=== PATIENT | female | born 1950 | race Caucasian/White ===

== ENCOUNTER → 2017-11-19 07:44 | Outpatient (CLI) | payer MEDICARE, OTHER, SELFPAY ==
[2017-11-19 09:51] LABS: Blood Urea Nitrogen 14 mg/dL (7-17); Calcium 9.8 mg/dL (8.4-10.2); Carbon Dioxide 26 mmol/L (22-32); Chloride 105 mmol/L (98-107); Cholesterol 161 mg/dL (140-199); Estimated Glomerular Filt Rate > 60.0 mL/min (>60); Glucose 91 mg/dL (80-110); HDL Cholesterol 53 mg/dL (40-60); HEMOLYSIS < 15 (0-50); LDL Cholesterol Calculated 86 mg/dL (<100); Potassium 4.1 mmol/L (3.4-5.1); Sodium 143 mmol/L (137-145); Triglycerides 108 mg/dL (35-150)
== END ==
PROVIDERS: PCP Internal Medicine; Visit Provider Internal Medicine
DX: Z00.00 Encounter for general adult medical examination without abnormal findings (principal); E03.9 Hypothyroidism, unspecified
CPT/HCPCS: 36415; 80048; 80061

== ENCOUNTER → 2018-03-23 13:51 | Outpatient (CLI) | payer MEDICARE, OTHER, SELFPAY | PROVIDERS: Family Provider Family Medicine; PCP Internal Medicine; Visit Provider Registered Nurse | DX: R39.9 Unspecified symptoms and signs involving the genitourinary system (principal) | CPT/HCPCS: 87086 ==

== ENCOUNTER → 2018-07-02 12:02 | Outpatient (CLI) | payer MEDICARE, OTHER, SELFPAY ==
--- NOTE | 2018-07-02 12:00 | DI.MG.S_ITS ---
Patient Name: SAHARA MERIDA date: 1950 Sex: F Attending Physician: Monalisa Indications: Date: 07/02/2018 12:16 At the request of: LILLIAN WESTFALL Procedure: MM screening mammo BI BILATERAL DIGITAL SCREENING MAMMOGRAM 3D/2D WITH CAD: 07/02/2018 CLINICAL: Routine screening. Comparison is made to exams dated: 06/13/2017 mammogram, 06/04/2016 mammogram, and 05/30/2015 mammogram - [facility]. The tissue of both breasts is extremely dense, which lowers the sensitivity of mammography. Current study was also evaluated with a Computer Aided Detection (CAD) system. There are benign calcifications in both breasts. No significant masses, calcifications, or other findings are seen in either breast. There has been no significant interval change. IMPRESSION: There is no mammographic evidence of malignancy. A 1 year screening mammogram is recommended. This exam was interpreted at Station ID: [id number]. NOTE: For mammograms, a report in lay terms will be sent to the patient. Approximately 15% of breast malignancies will not be visualized mammographically. In the management of a palpable breast mass, a negative mammogram must not discourage biopsy of a clinically suspicious lesion. Electronically Signed By: Ed corona/aron:07/02/2018 21:39:57 letter sent: Normal Exam ACR BI-RADS Category 2: Benign Finding(s) 3342F
== END ==
PROVIDERS: PCP Family Medicine; Visit Provider Family Medicine
DX: Z12.31 Encounter for screening mammogram for malignant neoplasm of breast (principal)
CPT/HCPCS: 77063; 77067

== ENCOUNTER → 2019-07-15 10:55 | Outpatient (CLI) | payer MEDICARE, OTHER, SELFPAY ==
--- NOTE | 2019-07-15 | DI.MG.S_ITS ---
BILATERAL DIGITAL SCREENING MAMMOGRAM 3D/2D WITH CAD: 07/15/2019 CLINICAL: Routine screening. Comparison is made to exams dated: 07/02/2018 mammogram, 06/13/2017 mammogram, 06/04/2016 mammogram, and 05/30/2015 mammogram - [facility]. The tissue of both breasts is extremely dense, which lowers the sensitivity of mammography. Current study was also evaluated with a Computer Aided Detection (CAD) system. There are benign calcifications in both breasts. No significant masses, calcifications, or other findings are seen in either breast. There has been no significant interval change. IMPRESSION: There is no mammographic evidence of malignancy. A 1 year screening mammogram is recommended. This exam was interpreted at Station ID: [id number]. NOTE: For mammograms, a report in lay terms will be sent to the patient. Approximately 15% of breast malignancies will not be visualized mammographically. In the management of a palpable breast mass, a negative mammogram must not discourage biopsy of a clinically suspicious lesion. Electronically Signed By: Jack obregon/aron:07/15/2019 18:42:15 letter sent: Normal Exam ACR BI-RADS Category 2: Benign Finding(s) 3342F
== END ==
PROVIDERS: PCP Family Medicine; Visit Provider Family Medicine
DX: Z12.31 Encounter for screening mammogram for malignant neoplasm of breast (principal)
CPT/HCPCS: 77063; 77067

== ENCOUNTER → 2019-08-17 11:57 | Outpatient (CLI) | payer MEDICARE, OTHER, SELFPAY ==
[2019-08-17 14:23] LABS: Thyroid Stimulating Hormone 0.76 uIU/mL (0.47-4.68)
== END ==
PROVIDERS: PCP Family Medicine; Referring Provider Family Medicine; Visit Provider Family Medicine
DX: E03.9 Hypothyroidism, unspecified (principal)
CPT/HCPCS: 36415; 84443

== ENCOUNTER → 2019-12-07 09:39 | Outpatient (CLI) | payer MEDICARE, OTHER, SELFPAY ==
[2019-12-07 09:52] LABS: RBC Urine None Seen (0-5/HPF); WBC Urine None Seen (0-5/HPF)
[2019-12-07 12:18] LABS: Appearance Urine UA CLEAR; Bilirubin Urine UA NEGATIVE (NEGATIVE); Color Urine UA YELLOW; Glucose Urine UA NEGATIVE (Negative); Ketones Urine UA NEGATIVE (NEGATIVE); Leukocyte Esterase Urine UA NEGATIVE (NEGATIVE); Nitrite Urine UA NEGATIVE (Negative); Occult Blood Urine UA NEGATIVE (Negative); Protein Urine UA NEGATIVE (Negative); Specific Gravity Urine UA <=1.005 (1.000-1.035); Urobilinogen Urine UA 0.2 E.U./dL (0.2)
[2019-12-07 12:30] LABS: pH Urine UA 6.5 (4.5-8.0)
[2019-12-07 12:31] LABS: Bacteria Urine Few (2-10); Culture Indicated Urine Cult Not Indicated; Squamous Epithelial Cell Urine 0-1 /HPF (0-5/HPF)
== END ==
PROVIDERS: PCP Family Medicine; Referring Provider Family Medicine; Visit Provider Family Medicine
DX: R30.0 Dysuria (principal); R39.15 Urgency of urination
CPT/HCPCS: 81001

== ENCOUNTER → 2020-04-28 07:53 | Outpatient (CLI) | payer MEDICARE, OTHER, SELFPAY ==
[2020-04-28 10:03] LABS: Add Manual Diff / Slide Review NO; Basophils Absolute Auto 0 /uL (0-100); Basophils Percent Auto 0.7 % (0-2); Eosinophils Absolute Auto 100 /uL (0-450); Hematocrit 43.3 % (36-46); Hemoglobin 14.6 g/dL (12.0-16.0); Lymphocytes Absolute Auto 2200 /uL (1100-4500); Mean Corpuscular HGB Conc 33.9 % (30-36); Mean Corpuscular Volume 91.4 fL (80-100); Monocytes Absolute Auto 500 /uL (0-900); Monocytes Percent Auto 8.1 % (3-14); Neutrophils Absolute Auto 2900 /uL (1500-7000); Neutrophils Percent Auto 50.2 % (50-75); Platelet Count 209 X10^3/uL (150-400); Red Blood Cell Count 4.73 X10^6/uL (4.0-5.2); Red Cell Distribution Width 13.2 % (11.6-14.8); White Blood Cell Count 5.7 X10^3/uL (4.5-11.0)
[2020-04-28 10:22] LABS: Alanine Aminotransferase 18 IU/L (<35); Albumin 4.1 g/dL (3.5-5.0); Albumin Globulin Ratio 1.4 (1.0-2.8); Alkaline Phosphatase 72 U/L (38-126); Aspartate Aminotransferase 22 IU/L (14-36); BUN Creatinine Ratio 20.8 (6-22); Bilirubin Total 0.8 mg/dL (0.2-1.3); Blood Urea Nitrogen 15 mg/dL (7-17); Calcium 9.4 mg/dL (8.4-10.2); Carbon Dioxide 28 mmol/L (22-32); Chloride 107 mmol/L (98-107); Cholesterol 161 mg/dL (140-199); Estimated Glomerular Filt Rate > 60.0 mL/min (>60); Glucose 86 mg/dL (80-110); HDL Cholesterol 52 mg/dL (40-60); HEMOLYSIS < 15 (0-50); LDL Cholesterol Calculated 87 mg/dL (<100); Potassium 4.2 mmol/L (3.4-5.1); Sodium 139 mmol/L (137-145); Total Protein 7.1 g/dL (6.3-8.2); Triglycerides 109 mg/dL (35-150)
[2020-04-28 10:51] LABS: Thyroid Stimulating Hormone 0.491 uIU/mL (0.47-4.68)
== END ==
PROVIDERS: PCP Family Medicine; Referring Provider Family Medicine; Visit Provider Family Medicine
DX: R00.2 Palpitations (principal)
CPT/HCPCS: 36415; 80053; 80061; 84443; 85025

== ENCOUNTER → 2020-05-04 13:19 | Outpatient (CLI) | payer MEDICARE, OTHER, SELFPAY ==
--- NOTE | 2020-05-31 10:41 | PM.CARDMON.1 ---
[employer] Report Referral & Results Date Patient Seen: 05/04/20 Requesting provider: Dee Sheldon Indication: Palpitations Duration of monitoring (days): 11 Diary information: There were 9 patient triggered events and 10 patient diary entries All 19 of these various events were associated with (within 45 seconds) sinus rhythm, PVCs, and PACs Data: Minimum heart rate identified was 45 beats per minute at 06:02 on 05/08/2020 Maximum sinus heart rate was 133 beats per minute at 19:26 on 05/10/2020 Maximum overall heart rate was 210 beats per minute at 23:17 on 05/04/2020 during a 9 beat run of nonsustained ventricular tachycardia Approximately 2.7% of identified beats were supraventricular ectopic in origin Less than 1% of identified beats were ventricular ectopic in origin There was only 1 run of ventricular tachycardia as above, 9 beats in duration and was monomorphic and nonsustained. There 165 runs of SVT/atrial tachycardia with the fastest being 9 beats at a rate of 162 beats per minute and the longest lasting 12 minutes 7 seconds at a rate of 127 beats per minute. It appears most of these runs of possible SVT were actually atrial tachycardia There were brief runs of ventricular trigeminy and bigeminy the longest lasting 21.8 seconds Impression: Patient with 1 run of nonsustained monomorphic ventricular tachycardia as above Patient with more significant burden of supraventricular ectopy including more prolonged episodes of atrial tachycardia. Clinical correlation suggested
== END ==
PROVIDERS: PCP Family Medicine; Referring Provider Family Medicine; Visit Provider Family Medicine
DX: R00.2 Palpitations (principal)
CPT/HCPCS: 0296T; 0298T

== ENCOUNTER → 2020-07-18 12:09 | Outpatient (CLI) | payer MEDICARE, OTHER, SELFPAY ==
--- NOTE | 2020-07-18 12:12 | DI.MG.S_ITS ---
BILATERAL DIGITAL SCREENING MAMMOGRAM 3D/2D WITH CAD: 07/18/2020 CLINICAL: Routine screening. Comparison is made to exams dated: 07/15/2019 mammogram, 07/02/2018 mammogram, and 06/13/2017 mammogram - [facility]. The tissue of both breasts is extremely dense, which lowers the sensitivity of mammography. Current study was also evaluated with a Computer Aided Detection (CAD) system. There are calcifications in both breasts. No significant masses, calcifications, or other findings are seen in either breast. There has been no significant interval change. IMPRESSION: BENIGN There is no mammographic evidence of malignancy. A 1 year screening mammogram is recommended. This exam was interpreted at Station ID: [id number]. NOTE: For mammograms, a report in lay terms will be sent to the patient. Approximately 15% of breast malignancies will not be visualized mammographically. In the management of a palpable breast mass, a negative mammogram must not discourage biopsy of a clinically suspicious lesion. Electronically Signed By: Ed Graf M.D. at/:07/18/2020 13:51:20 letter sent: Normal Exam ACR BI-RADS Category 2: Benign Finding(s) 3342F
== END ==
PROVIDERS: PCP Family Medicine; Referring Provider Family Medicine; Visit Provider Family Medicine
DX: Z12.31 Encounter for screening mammogram for malignant neoplasm of breast (principal)
CPT/HCPCS: 77063; 77067

== ENCOUNTER → 2020-11-07 12:52 | Outpatient (CLI) | payer MEDICARE, OTHER, SELFPAY ==
[2020-11-07 14:16] LABS: Appearance Urine UA SL CLOUDY; Bilirubin Urine UA NEGATIVE (NEGATIVE); Color Urine UA YELLOW; Glucose Urine UA NEGATIVE (Negative); Ketones Urine UA NEGATIVE (NEGATIVE); Leukocyte Esterase Urine UA 2+ (NEGATIVE); Nitrite Urine UA NEGATIVE (Negative); Occult Blood Urine UA 1+ (Negative); Protein Urine UA NEGATIVE (Negative); Specific Gravity Urine UA 1.015 (1.000-1.035); Urobilinogen Urine UA 0.2 E.U./dL (0.2)
[2020-11-07 14:29] LABS: Bacteria Urine Many (>30); RBC Urine 1-5/HPF (0-5/HPF); Squamous Epithelial Cell Urine 1-5 /HPF (0-5/HPF); WBC Urine >100/HPF (0-5/HPF); pH Urine UA 6.5 (4.5-8.0)
[2020-11-07 14:30] LABS: Culture Indicated Urine Specimen Cultured
== END ==
PROVIDERS: PCP Family Medicine; Referring Provider Family Medicine; Visit Provider Family Medicine
DX: R30.0 Dysuria (principal); R39.15 Urgency of urination
CPT/HCPCS: 81001; 87077; 87086; 87186

== ENCOUNTER → 2020-11-16 12:57 | Outpatient (CLI) | payer MEDICARE, OTHER, SELFPAY ==
[2020-11-16 13:01] LABS: Bacteria Urine None Seen; RBC Urine None Seen (0-5/HPF)
[2020-11-16 15:11] LABS: Appearance Urine UA CLEAR; Bilirubin Urine UA NEGATIVE (NEGATIVE); Color Urine UA YELLOW; Glucose Urine UA NEGATIVE (Negative); Ketones Urine UA NEGATIVE (NEGATIVE); Leukocyte Esterase Urine UA TRACE (NEGATIVE); Nitrite Urine UA NEGATIVE (Negative); Occult Blood Urine UA NEGATIVE (Negative); Protein Urine UA NEGATIVE (Negative); Urobilinogen Urine UA 0.2 E.U./dL (0.2)
[2020-11-16 15:32] LABS: Culture Indicated Urine Specimen Cultured; WBC Urine 0-1/HPF (0-5/HPF)
== END ==
PROVIDERS: PCP Family Medicine; Referring Provider Family Medicine; Visit Provider Family Medicine
DX: N39.0 Urinary tract infection, site not specified (principal)
CPT/HCPCS: 81001; 87086

== ENCOUNTER → 2021-07-19 11:20 | Outpatient (CLI) | payer MEDICARE, OTHER, SELFPAY ==
--- NOTE | 2021-07-19 11:22 | DI.MG.S_ITS ---
BILATERAL DIGITAL SCREENING MAMMOGRAM 3D/2D WITH CAD: 07/19/2021 CLINICAL: Routine screening. Comparison is made to exams dated: 07/18/2020 mammogram, 07/15/2019 mammogram, and 07/02/2018 mammogram - [facility]. The tissue of both breasts is extremely dense, which lowers the sensitivity of mammography. Current study was also evaluated with a Computer Aided Detection (CAD) system. There are benign calcifications in both breasts. No significant masses, calcifications, or other findings are seen in either breast. There has been no significant interval change. IMPRESSION: BENIGN There is no mammographic evidence of malignancy. A 1 year screening mammogram is recommended. This exam was interpreted at Station ID: [id number]. NOTE: For mammograms, a report in lay terms will be sent to the patient. Approximately 15% of breast malignancies will not be visualized mammographically. In the management of a palpable breast mass, a negative mammogram must not discourage biopsy of a clinically suspicious lesion. Electronically Signed By: Tl Fields acr/aron:07/19/2021 11:47:05 letter sent: Normal Exam ACR BI-RADS Category 2: Benign Finding(s) 3342F
[2021-07-19 14:08] LABS: Thyroid Stimulating Hormone 0.374 uIU/mL (0.47-4.68)
== END ==
PROVIDERS: PCP Family Medicine; Referring Provider Family Medicine; Visit Provider Family Medicine
DX: Z12.31 Encounter for screening mammogram for malignant neoplasm of breast (principal); E03.9 Hypothyroidism, unspecified
CPT/HCPCS: 36415; 77063; 77067; 84443

== ENCOUNTER → 2021-09-04 12:26 | Outpatient (CLI) | payer MEDICARE, OTHER, SELFPAY ==
[2021-09-04 14:00] LABS: Thyroid Stimulating Hormone 1.51 uIU/mL (0.47-4.68)
== END ==
PROVIDERS: PCP Family Medicine; Referring Provider Family Medicine; Visit Provider Family Medicine
DX: E03.9 Hypothyroidism, unspecified (principal)
CPT/HCPCS: 36415; 84443

== ENCOUNTER → 2022-07-20 12:41 | Outpatient (CLI) | payer MEDICARE, OTHER, SELFPAY ==
--- NOTE | 2022-07-20 12:42 | DI.MG.S_ITS ---
BILATERAL DIGITAL SCREENING MAMMOGRAM 3D/2D WITH CAD: 07/20/2022 CLINICAL: Routine screening. Comparison is made to exams dated: 07/19/2021 mammogram, 07/18/2020 mammogram, and 07/15/2019 mammogram - [facility]. Both breasts are extremely dense, which lowers the sensitivity of mammography (category d />75% glandular tissue). Current study was also evaluated with a Computer Aided Detection (CAD) system. There are benign calcifications in both breasts. No significant masses, calcifications, or other findings are seen in either breast. There has been no significant interval change. IMPRESSION: BENIGN There is no mammographic evidence of malignancy. A 1 year screening mammogram is recommended. Based on the Tyrer Cuzick model (a risk assessment model) the patient's lifetime risk is 8.9% and her 10 year risk is 8.0%. According to the ACR, ACS, and NCCN guidelines, an annual breast MRI exam along with mammogram is recommended if the patient's lifetime risk is 20% or greater. This exam was interpreted at Station ID: [id number]. NOTE: For mammograms, a report in lay terms will be sent to the patient. Approximately 15% of breast malignancies will not be visualized mammographically. In the management of a palpable breast mass, a negative mammogram must not discourage biopsy of a clinically suspicious lesion. Electronically Signed By: Praneeth salomon/aron:07/22/2022 02:18:03 letter sent: Normal Exam ACR BI-RADS Category 2: Benign Finding(s) 3342F
== END ==
PROVIDERS: PCP Family Medicine; Referring Provider Family Medicine; Visit Provider Family Medicine
DX: Z12.31 Encounter for screening mammogram for malignant neoplasm of breast (principal)
CPT/HCPCS: 77063; 77067

== ENCOUNTER → 2022-08-17 08:08 | Outpatient (CLI) | payer MEDICARE, OTHER, SELFPAY ==
[2022-08-17 08:44] LABS: Add Manual Diff / Slide Review NO; Basophils Absolute Auto 100 /uL (0-100); Eosinophils Absolute Auto 700 /uL (0-450); Eosinophils Percent Auto 13.4 % (2-4); Hematocrit 43.8 % (36-46); Hemoglobin 14.6 g/dL (12.0-16.0); Lymphocytes Absolute Auto 1700 /uL (1100-4500); Lymphocytes Percent Auto 32.1 % (25-40); Mean Corpuscular HGB Conc 33.3 % (30-36); Mean Corpuscular Hemoglobin 30.7 PG (26-34); Mean Corpuscular Volume 92.2 fL (80-100); Monocytes Absolute Auto 500 /uL (0-900); Neutrophils Absolute Auto 2400 /uL (1500-7000); Neutrophils Percent Auto 44.5 % (50-75); Platelet Count 222 X10^3/uL (150-400); Red Blood Cell Count 4.75 X10^6/uL (4.0-5.2); Red Cell Distribution Width 13.7 % (11.6-14.8); White Blood Cell Count 5.4 X10^3/uL (4.5-11.0)
[2022-08-17 09:04] LABS: Alanine Aminotransferase 30 IU/L (<35); Albumin 4.4 g/dL (3.5-5.0); Albumin Globulin Ratio 1.4 (1.0-2.8); Alkaline Phosphatase 69 U/L (38-126); Aspartate Aminotransferase 28 IU/L (14-36); BUN Creatinine Ratio 15.5 (6-22); Bilirubin Total 0.8 mg/dL (0.2-1.3); Blood Urea Nitrogen 11 mg/dL (7-17); Calcium 9.3 mg/dL (8.4-10.2); Carbon Dioxide 25 mmol/L (22-32); Chloride 105 mmol/L (98-107); Cholesterol 184 mg/dL (140-199); Estimated Glomerular Filt Rate > 60 mL/min (>60); Globulin 3.2 g/dL (1.7-4.1); Glucose 95 mg/dL (80-110); HDL Cholesterol 61 mg/dL (40-60); HEMOLYSIS < 15 (0-50); LDL Cholesterol Calculated 101 mg/dL (<100); Potassium 4.1 mmol/L (3.4-5.1); Sodium 139 mmol/L (137-145); Total Protein 7.6 g/dL (6.3-8.2); Triglycerides 109 mg/dL (35-150)
[2022-08-17 09:31] LABS: Thyroid Stimulating Hormone 6.37 uIU/mL (0.47-4.68)
== END ==
PROVIDERS: PCP Family Medicine; Referring Provider Family Medicine; Visit Provider Family Medicine
DX: E03.9 Hypothyroidism, unspecified (principal); G47.33 Obstructive sleep apnea (adult) (pediatric); M85.80 Other specified disorders of bone density and structure, unspecified site; Z79.899 Other long term (current) drug therapy
CPT/HCPCS: 36415; 80053; 80061; 84443; 85025

== ENCOUNTER → 2022-10-08 14:34 | Outpatient (CLI) | payer MEDICARE, OTHER, SELFPAY ==
[2022-10-08 15:54] LABS: Thyroid Stimulating Hormone 0.796 uIU/mL (0.47-4.68)
== END ==
PROVIDERS: PCP Family Medicine; Referring Provider Family Medicine; Visit Provider Family Medicine
DX: E03.9 Hypothyroidism, unspecified (principal)
CPT/HCPCS: 36415; 84443

== ENCOUNTER → 2023-05-06 07:34 | Outpatient (CLI) | payer MEDICARE, OTHER, SELFPAY | PROVIDERS: PCP Family Medicine; Visit Provider Student in an Organized Health Care Education/Training Program | DX: R30.0 Dysuria (principal) | CPT/HCPCS: 87086 ==

== ENCOUNTER → 2023-07-18 14:56 | Outpatient (CLI) | payer MEDICARE, OTHER, SELFPAY ==
[2023-07-18 16:10] LABS: TSH w/ Reflex to FT4 0.37 uIU/mL (0.47-4.68)
[2023-07-18 16:42] LABS: Free T4, Direct Thyroxine 1.66 ng/dL (0.78-2.19)
== END ==
PROVIDERS: PCP Family Medicine; Referring Provider Family Medicine; Visit Provider Family Medicine
DX: E03.9 Hypothyroidism, unspecified (principal)
CPT/HCPCS: 36415; 84439; 84443

== ENCOUNTER → 2023-07-30 10:03 | Outpatient (CLI) | payer MEDICARE, OTHER, SELFPAY ==
--- NOTE | 2023-07-30 10:04 | DI.MG.S_ITS ---
BILATERAL DIGITAL SCREENING MAMMOGRAM 3D/2D WITH CAD: 07/30/2023 CLINICAL: Routine screening. Comparison is made to exams dated: 07/19/2021 mammogram, 07/20/2022 mammogram, and 07/18/2020 mammogram - . Both breasts are extremely dense, which lowers the sensitivity of mammography (category d />75% glandular tissue). Current study was also evaluated with a Computer Aided Detection (CAD) system. There are benign calcifications in both breasts. No significant masses, calcifications, or other findings are seen in either breast. There has been no significant interval change. IMPRESSION: BENIGN There is no mammographic evidence of malignancy. A 1 year screening mammogram is recommended. Based on the Tyrer Cuzick model (a risk assessment model) the patient's lifetime risk is 8.2% and her 10 year risk is 8.2%. According to the ACR, ACS, and NCCN guidelines, an annual breast MRI exam along with mammogram is recommended if the patient's lifetime risk is 20% or greater. This exam was interpreted at Station ID: [id number]. NOTE: For mammograms, a report in lay terms will be sent to the patient. Approximately 15% of breast malignancies will not be visualized mammographically. In the management of a palpable breast mass, a negative mammogram must not discourage biopsy of a clinically suspicious lesion. Electronically Signed By: Estefania hill/aron:07/30/2023 12:40:45 letter sent: Normal Exam ACR BI-RADS Category 2: Benign Finding(s) 3342F
== END ==
LOC: MAMMO 10:04
PROVIDERS: PCP Family Medicine; Referring Provider Family Medicine; Visit Provider Family Medicine
DX: Z12.31 Encounter for screening mammogram for malignant neoplasm of breast (principal); R92.30 Dense breasts, unspecified
CPT/HCPCS: 77063; 77067

== ENCOUNTER → 2023-09-06 10:01 | Outpatient (CLI) | payer MEDICARE, OTHER, SELFPAY ==
[2023-09-06 11:56] LABS: TSH w/ Reflex to FT4 1.57 uIU/mL (0.47-4.68)
== END ==
PROVIDERS: PCP Family Medicine; Referring Provider Family Medicine; Visit Provider Family Medicine
DX: E03.9 Hypothyroidism, unspecified (principal)
CPT/HCPCS: 36415; 84443

== ENCOUNTER → 2023-12-15 18:08 | Outpatient (CLI) | payer MEDICARE, OTHER, SELFPAY | PROVIDERS: PCP Family Medicine; Visit Provider Nurse Practitioner Family | DX: R30.0 Dysuria (principal) | CPT/HCPCS: 87086; 87210 ==

== ENCOUNTER → 2024-08-02 13:53 | Outpatient (CLI) | payer MEDICARE, OTHER, SELFPAY ==
--- NOTE | 2024-08-02 13:56 | DI.MG.S_ITS ---
BILATERAL DIGITAL SCREENING MAMMOGRAM 3D/2D WITH CAD: 08/02/2024 CLINICAL: Routine screening. Comparison is made to exams dated: 07/30/2023 mammogram, 07/20/2022 mammogram, and 07/19/2021 mammogram - [facility]. The breasts are extremely dense, which lowers the sensitivity of mammography (category d />75% glandular tissue). Current study was also evaluated with a Computer Aided Detection (CAD) system. There are benign calcifications in both breasts. No significant masses, calcifications, or other findings are seen in either breast. There has been no significant interval change. IMPRESSION: BENIGN There is no mammographic evidence of malignancy. A 1 year screening mammogram is recommended. Based on the Tyrer Cuzick model (a risk assessment model) the patient's lifetime risk is 7.5% and her 10 year risk is 0.0%. According to the ACR, ACS, and NCCN guidelines, an annual breast MRI exam along with mammogram is recommended if the patient's lifetime risk is 20% or greater. This exam was interpreted at Station ID: [id number]. NOTE: For mammograms, a report in lay terms will be sent to the patient. Approximately 15% of breast malignancies will not be visualized mammographically. In the management of a palpable breast mass, a negative mammogram must not discourage biopsy of a clinically suspicious lesion. Electronically Signed By: Ed corona/aron:08/02/2024 16:49:32 letter sent: Normal Exam ACR BI-RADS Category 2: Benign
== END ==
PROVIDERS: PCP Family Medicine; Referring Provider Family Medicine; Visit Provider Family Medicine
DX: Z12.31 Encounter for screening mammogram for malignant neoplasm of breast (principal); R92.343 Mammographic extreme density, bilateral breasts
CPT/HCPCS: 77063; 77067

== ENCOUNTER → 2024-08-16 07:01 | Outpatient (CLI) | payer MEDICARE, OTHER, SELFPAY ==
[2024-08-16 08:24] LABS: Add Manual Diff / Slide Review NO; Basophils Absolute Auto 100 /uL (0-100); Basophils Percent Auto 1.1 % (0-2); Eosinophils Absolute Auto 300 /uL (0-450); Eosinophils Percent Auto 4.8 % (2-4); Hematocrit 41.6 % (36-46); Hemoglobin 14.2 g/dL (12.0-16.0); Lymphocytes Absolute Auto 2600 /uL (1100-4500); Lymphocytes Percent Auto 41.5 % (25-40); Mean Corpuscular HGB Conc 34.1 % (30-36); Mean Corpuscular Hemoglobin 31.6 PG (26-34); Mean Corpuscular Volume 92.6 fL (80-100); Monocytes Absolute Auto 500 /uL (0-900); Monocytes Percent Auto 8.7 % (3-14); Neutrophils Absolute Auto 2700 /uL (1500-7000); Neutrophils Percent Auto 43.9 % (50-75); Platelet Count 210 X10^3/uL (150-400); Red Blood Cell Count 4.49 X10^6/uL (4.0-5.2); Red Cell Distribution Width 13.6 % (11.6-14.8); White Blood Cell Count 6.2 X10^3/uL (4.5-11.0)
[2024-08-16 08:41] LABS: Alanine Aminotransferase 22 IU/L (<35); Albumin 4.3 g/dL (3.5-5.0); Albumin Globulin Ratio 1.7 (1.0-2.8); Alkaline Phosphatase 73 U/L (38-126); Aspartate Aminotransferase 24 IU/L (14-36); BUN Creatinine Ratio 22.7 (6-22); Bilirubin Total 0.6 mg/dL (0.2-1.3); Blood Urea Nitrogen 17 mg/dL (7-17); Calcium 9.4 mg/dL (8.4-10.2); Carbon Dioxide 25 mmol/L (22-32); Chloride 106 mmol/L (98-107); Cholesterol 170 mg/dL (140-199); Estimated Glomerular Filt Rate > 60 mL/min (>60); Globulin 2.6 g/dL (1.7-4.1); Glucose 85 mg/dL (80-110); HDL Cholesterol 50 mg/dL (40-60); HEMOLYSIS < 15 (0-50); LDL Cholesterol Calculated 102 mg/dL (<100); Potassium 4.3 mmol/L (3.4-5.1); Sodium 140 mmol/L (137-145); Total Protein 6.9 g/dL (6.3-8.2); Triglycerides 88 mg/dL (35-150)
[2024-08-16 09:09] LABS: TSH w/ Reflex to FT4 4.84 uIU/mL (0.47-4.68)
[2024-08-16 09:41] LABS: Free T4, Direct Thyroxine 1.26 ng/dL (0.78-2.19)
== END ==
PROVIDERS: PCP Family Medicine; Referring Provider Family Medicine; Visit Provider Family Medicine
DX: E03.9 Hypothyroidism, unspecified (principal); E78.5 Hyperlipidemia, unspecified
CPT/HCPCS: 36415; 80053; 80061; 84439; 84443; 85025

== ENCOUNTER → 2024-11-09 12:15 | Outpatient (CLI) | payer MEDICARE, OTHER, SELFPAY ==
--- NOTE | 2024-11-09 12:16 | DI.RAD.S_ITS ---
PROCEDURE: XR LUMBAR SPINE 2-3V INDICATIONS: pain TECHNIQUE: 3 views of the lumbar spine were acquired. COMPARISON: None. FINDINGS: Lumbar spine curvature and alignment: Moderate dextroscoliosis of lower thoracic and lumbar spine appreciated. Grade 1 L4-5 spondylolisthesis due to facet disease is also noted. Bones: Mild biconcavity of the T10 through L5 endplates suggests osteoporosis Disc spaces: Moderate degenerative disc disease T9-10 through L3-4 with mild L4-5 moderate L5-S1 degenerative disc disease. Severe L4-5 and L5-S1 degenerative facet disease noted Soft tissues: No soft tissue swelling, calcification or mass. IMPRESSION: Degeneration. Probable osteoporosis. Consider DEXA scanning. If confirmed, patient may benefit from medical therapy for fracture prevention Dictated by: Iban Ochoa M.D. on 11/10/2024 at 10:08 Approved by: Iban Ochoa M.D. on 11/10/2024 at 10:10
--- NOTE | 2024-11-09 12:16 | DI.RAD.S_ITS ---
PROCEDURE: XR HIP W PEL IF DONE LT 2V INDICATIONS: pain TECHNIQUE: AP pelvis with lateral view(s) of the left hip(s). COMPARISON: None. FINDINGS: Bones: There are no osseous abnormalities. SI and hip joints: Bilateral hip prostheses are in near anatomic alignment without evidence of loosening or infection. Both SI joints are normal. Mild L4-5 and moderate L5-S1 degenerative disc and facet disease noted. Soft tissues: No soft tissue swelling, calcification or mass. IMPRESSION: Bilateral hip prostheses unremarkable Dictated by: Iban Ochoa M.D. on 11/10/2024 at 10:07 Approved by: Iban Ochoa M.D. on 11/10/2024 at 10:08
== END ==
PROVIDERS: PCP Family Medicine; Referring Provider Family Medicine; Visit Provider Family Medicine
DX: R52 Pain, unspecified (principal); M51.369 Other intervertebral disc degeneration, lumbar region without mention of lumbar back pain or lower extremity pain; Z96.643 Presence of artificial hip joint, bilateral
CPT/HCPCS: 72100; 73502